=== PATIENT | male | born 1980 ===

== ENCOUNTER 2018-05-30 15:14 | Emergency (ER) | payer SELFPAY ==
[~2018-05-30] VITALS: Ht 167.6 cm; Wt 74.8 kg
[2018-05-30 15:20] VITALS: BP 158/94; Ht 167.6 cm; Wt 74.8 kg
== END 2018-05-30 15:31 | disposition left against medical advice (07) ==
LOC: ED 15:14
DX: Z53.21 Procedure and treatment not carried out due to patient leaving prior to being seen by health care provider (principal)